=== PATIENT | female | born 1935 | race Caucasian/White ===

== ENCOUNTER → 2018-08-15 | Outpatient (CLI) | payer MEDICARE, OTHER | END | disposition home or self-care (01) | LOC: SURG 14:20 | PROVIDERS: ATTEND Anesthesiology Pain Medicine | DX: M47.26 Other spondylosis with radiculopathy, lumbar region (principal); M19.90 Unspecified osteoarthritis, unspecified site; M25.559 Pain in unspecified hip; I10 Essential (primary) hypertension; E11.9 Type 2 diabetes mellitus without complications; Z90.49 Acquired absence of other specified parts of digestive tract; Z90.710 Acquired absence of both cervix and uterus | CPT/HCPCS: 99204 ==

== ENCOUNTER → 2018-09-19 | Outpatient (CLI) | payer MEDICARE, OTHER ==
[~2018-09-19] MED LIST: 0.9 % SODIUM CHLORIDE 10 ML VIAL ONE; IOHEXOL 300 MG/ML 50 ML VIAL. ONE; LIDOCAINE 1% PF 30 ML VIAL. ONE; methylPREDNISolone ACETATE 80 MG/ML VIAL. ONE
== END | disposition home or self-care (01) ==
LOC: SURG 12:41
PROVIDERS: ATTEND Anesthesiology Pain Medicine
DX: M54.16 Radiculopathy, lumbar region (principal); Z88.6 Allergy status to analgesic agent; G47.30 Sleep apnea, unspecified; I10 Essential (primary) hypertension; K21.9 Gastro-esophageal reflux disease without esophagitis; E11.9 Type 2 diabetes mellitus without complications; M19.90 Unspecified osteoarthritis, unspecified site; Z90.710 Acquired absence of both cervix and uterus; Z90.49 Acquired absence of other specified parts of digestive tract; Z98.890 Other specified postprocedural states; Z79.899 Other long term (current) drug therapy; Z79.84 Long term (current) use of oral hypoglycemic drugs
CPT/HCPCS: 62323; J1040; J2001; Q9967

== ENCOUNTER → 2020-08-09 | Outpatient (CLI) | payer MEDICARE, OTHER | LOC: LAB 08:12 | PROVIDERS: ATTEND Internal Medicine Interventional Cardiology | DX: E78.5 Hyperlipidemia, unspecified (principal) | CPT/HCPCS: 80061 ==

== ENCOUNTER 2021-01-07 14:47 | Emergency (ER) | payer MEDICARE, OTHER | END 2021-01-07 15:20 | disposition left against medical advice (07) | LOC: ER 14:47 | DX: I10 Essential (primary) hypertension (principal); Z53.21 Procedure and treatment not carried out due to patient leaving prior to being seen by health care provider ==

== ENCOUNTER 2021-01-25 11:39 | Emergency (ER) | payer MEDICARE, OTHER ==
[~2021-01-25] VITALS: Ht 162.6 cm; Wt 77.0 kg
--- NOTE | 2021-01-25 12:22 | PHYS DOC ---
Past History Past Surgical History: Appendectomy, Cholecystectomy, Hip Replacement, Hysterectomy Additional Past Surgical Histo: Spinal fusion (MARTINE ALMARAZ APRN) Alcohol Use: None (MARTINE ALMARAZ APRN) General Adult EDM: Chief Complaint: LACERATION/AVULSION HPI: HPI: An 85-year-old female being seen in the ER for a laceration to her right forearm. Patient reports that she tripped walking out of her door and fell against the storm door and cut her arm on the metal. Patient is reporting pain to her right forearm that she rates 2 out of 10. No treatment prior to arrival. Patient denies any decreased sensation or decreased range of motion to extremity. Patient is unsure of her last tetanus shot. (MARTINE ALMARAZ APRN) Review of Systems: Review of Systems: Constitutional: Denies fever or chills Eyes: Denies change in visual acuity HENT: Denies nasal congestion or sore throat Respiratory: Denies cough or shortness of breath Cardiovascular: Denies chest pain or edema GI: Denies abdominal pain, nausea, vomiting, bloody stools or diarrhea : Denies dysuria Musculoskeletal: Denies back pain or joint pain Integument: Denies rash Neurologic: Denies headache, focal weakness or sensory changes Endocrine: Denies polyuria or polydipsia Lymphatic: Denies swollen glands Psychiatric: Denies depression or anxiety (MARTINE ALMARAZ APRN) Allergies: Allergies: Allergies Coded Allergies Type Severity Reaction Last Updated Verified Sulfa (Sulfonamide Antibiotics) Allergy Unknown 01/25/21 Yes aspirin Allergy Unknown 01/25/21 Yes ibuprofen Allergy Unknown 01/25/21 Yes (MARTINE ALMARAZ APRN) Physical Exam: PE: Constitutional: Well developed, well nourished, no acute distress, non-toxic appearance. [] HENT: Normocephalic, atraumatic, bilateral external ears normal, oropharynx moist, no oral exudates, nose normal. [] Eyes: PERRLA, EOMI, conjunctiva normal, no discharge. [] Neck: Normal range of motion, no tenderness, supple, no stridor. [] Cardiovascular:Heart rate regular rhythm, no murmur [] Lungs & Thorax: Bilateral breath sounds clear to auscultation [] Abdomen: Bowel sounds normal, soft, no tenderness, no masses, no pulsatile masses. [] Skin: Warm, dry, no erythema, no rash. [] Back: No tenderness, no CVA tenderness. [] Extremities: No tenderness, no cyanosis, no clubbing, ROM intact, no edema. [] Neurologic: Alert and oriented X 3, normal motor function, normal sensory function, no focal deficits noted. [] Psychologic: Affect normal, judgement normal, mood normal. [] (MARTINE ALMARAZ APRN) Current Patient Data: Vital Signs: Vital Signs Date Time Temp Pulse Resp B/P (MAP) Pulse Ox O2 Delivery O2 Flow Rate FiO2 01/25/21 11:46 98.1 70 18 131/71 99 (MARTINE ALMARAZ APRN) EKG: EKG: [] (MARTINE ALMARAZ APRN) Radiology/Procedures: Radiology/Procedures: PROCEDURE: FOREARM RIGHT EXAM: AP and lateral views right forearm DATE: 01/25/2021 12:49 PM INDICATION: Reason: r/o glass fb from laceration / Spl. Instructions: / History: . COMPARISON: No Prior FINDINGS/ IMPRESSION: Soft tissue laceration at the dorsal aspect of the right forearm. No definite retained radiopaque foreign body. Associated soft tissue swelling. No acute fracture or dislocation. Electronically signed by: Roshan Almeida MD (01/25/2021 1:33 PM) [id number] DICTATED AND SIGNED BY: ROSHAN ALMEIDA MD DATE: 01/25/21 1333 CC: HEMANT KEYS MD; EMERGENCY,DEPARTMENT; MARTINE ALMARAZ APRN ~MTH0 0 [] (MARTINE ALMARAZ APRN) Heart Score: C/O Chest Pain: No Risk Factors: Risk Factors: DM, Current or recent (<one month) smoker, HTN, HLP, family history of CAD, obesity. Risk Scores: Score 0 - 3: 2.5% MACE over next 6 weeks - Discharge Home Score 4 - 6: 20.3% MACE over next 6 weeks - Admit for Clinical Observation Score 7 - 10: 72.7% MACE over next 6 weeks - Early Invasive Strategies (MARTINE ALMARAZ APRN) Course & Med Decision Making: Course & Med Decision Making Pertinent Labs and Imaging studies reviewed. (See chart for details) [] Patient is an 85-year-old female being seen in the ER for a laceration to her right forearm. Wound was cleansed with chlorhexidine and saline. Laceration was explored and there were no foreign bodies or tendon involvement. X-ray performed and it was negative for any foreign body or fracture. Laceration was repaired with 5-0 ethilon, 9 sutures placed.. Patient tolerated procedure. Neuro intact pre and post procedure. Wound dressed prior to discharge. Patient advised to monitor for signs of infection including redness, warmth, swelling, drainage. I discussed with patient all findings as well as the need to follow- up with PCP for further evaluation and treatment or return to the ER if any new or worsening symptoms. Strict return precautions were also discussed at length. Patient voiced understanding and agreement with the plan. Patient is hemodynamically stable at the time of disposition. (MARTINE ALMARAZ APRN) Course & Med Decision Making I oversaw on the above date of service of this patient. This patient was evalua fabby, examined, treated, and dispositioned from the emergency department by the mid-level practitioner. Although I was working at the time , no assistance was requested. Electronically signed, Sagar Mathews DO (SAGAR MATHEWS DO) Day Disclaimer: Day Disclaimer: This electronic medical record was generated, in whole or in part, using a voice recognition dictation system. (MARTINE ALMARAZ APRN) Laceration Repair Lac Repair Time:1340 Confirmed: Patient, procedure, site, and site correct Consent: Patient has given verbal consent Laceration location:R. FA Shape:linear Depth: with subcutaneous tissue Details: Clean with no foreign material Neurovascular, tendon exam: Intact Anesthesia:1% lido Preparation: Sterile field established Irrigation: Wound irrigated with saline and chlorhexadine Debridement: Skin closure: Simple interrupted sutures placed Size of suture:5.0 ethilon Number of sutures: 9 Complexity: Single layer Post procedure exam: Circulation, motor, sensory exam intact, bleeding controlled. Complications: None Patient tolerated: Well Performed by: self Total time: 35 min (MARTINE ALMARAZ APRN) Departure Departure: Impression: Primary Impression: Laceration of arm Qualified Codes: S41.111A - Laceration without foreign body of right upper arm, initial encounter Disposition: HOME / SELF CARE / HOMELESS Condition: GOOD Referrals: HEMANT KEYS MD (PCP) Patient Instructions: Laceration Care, Adult Additional Instructions: You were seen in the ER today for a laceration to your right forearm. An x-ray was performed to check for any foreign bodies and it was negative for foreign bodies or fracture. You were given a tetanus shot in the ER. Your laceration was repaired with sutures. You will need to have the sutures out in 7 to 10 days. You can go to your primary care provider or return to the ER to have this removed. Please keep your laceration clean and dry. You can take Tylenol for pain at home. Do not submerge your arm in any water for 48 hours. Monitor for any signs of infection including redness, warmth, swelling, drainage. If you develop any signs of infection, worsening of your pain, decreased sensation to your hand, decreased range of motion, fevers please return to the ER immediately EMERGENCY DEPARTMENT GENERAL DISCHARGE INSTRUCTIONS Thank you for coming to [facility] ([facility]) today and trusting us with you care. We trust that you had a positivie experience in our Emergency Department. If you wish to speak to the department management, you may call the director at [phone]. YOUR FOLLOW UP INSTRUCTIONS ARE FOLLOWS: 1. Do you have a private Doctor? If you do not have a private doctor, please ask for a resource list of physicians or clinics that may be able to assist you with follow up care. 2. The Emergency Physician has interpreted your x-rays. The X-Ray specialist will also review them. If there is a change in the findings, you will be notified in 48 hours when at all possible. 3. A lab test or culture has been done, your results will be reviewed and you will be notified if you need a change in treatment. ADDITIONAL INSTRUCTIONS AND INFORMATION: 1. Your care today has been supervised by a physician who is specially trained in emergency care. Many problems require more than one evaluation for a complete diagnosis and treatment. We recommend that you schedule your follow up appointment as recommended to ensure complete treatment of you illness or injury. If you are unable to obtain follow up care and continue to have a problem, or if your condition worsens, we recommend that you return to the ED. 2. We are not able to safely determine your condition over the phone nor are we able to give sound medical advice over the phone. For these safety reasons, if you call for medical advice we will ask you to come to the ED for further evaluation. 3. If you have any questions regarding these discharge instructions please call the ED at [phone]. SAFETY INFORMATION: In the interest of safety, wellness, and injury prevention; we encourage you to wear your sealbelt, if you smoke; quite smoking, and we encourage family to use a protective helmet for bicycling and other sporting events that present an increased risk for head injury. IF YOUR SYMPTOMS WORSEN OR NEW SYMPTOMS DEVELOP, OR YOU HAVE CONCERNS ABOUT YOUR CONDITION; OR IF YOUR CONDITION WORSENS WHILE YOU ARE WAITING FOR YOUR FOLLOW UP APPOINTMENT; EITHER CONTACT YOUR PRIMARY CARE DOCTOR, THE PHYSICIAN WHOSE NAME AND NUMBER YOU WERE GIVEN, OR RETURN TO THE ED IMMEDIATELY. MARTINE ALMARAZ APRN Jan 25, 2021 12:22 SAGAR MATHEWS DO Jan 30, 2021 06:08
[2021-01-25] MEDS ORDERED: LIDOCAINE 1% Multi-Dose 20 ML VIAL. IJ ONE (12:30)
[2021-01-25] MEDS ORDERED: DIPH,PERTUSS(ACELL),TET VAC/PF 0.5 ML SYRINGE. VAX IM ONE (12:30)
--- NOTE | 2021-01-25 13:36 | RAD ---
EXAM: AP and lateral views right forearm DATE: 01/25/2021 12:49 PM INDICATION: Reason: r/o glass fb from laceration / Spl. Instructions: / History: . COMPARISON: No Prior FINDINGS/ IMPRESSION: Soft tissue laceration at the dorsal aspect of the right forearm. No definite retained radiopaque for eign body. Associated soft tissue swelling. No acute fracture or dislocation. Electronically signed by: Roshan Morales MD (01/25/2021 1:33 PM) [id number]
[2021-01-25 14:50] VITALS: BP 128/67
== END 2021-01-25 14:50 | disposition home or self-care (01) ==
LOC: ER 11:39
DX: S51.811A Laceration without foreign body of right forearm, initial encounter (principal); Z88.2 Allergy status to sulfonamides; Z88.6 Allergy status to analgesic agent; W01.118A Fall on same level from slipping, tripping and stumbling with subsequent striking against other sharp object, initial encounter; Y93.89 Activity, other specified; Y92.89 Other specified places as the place of occurrence of the external cause; Y99.8 Other external cause status
CPT/HCPCS: 12002; 73090; 90471; 90715; 99284

== ENCOUNTER 2021-02-01 13:03 | Emergency (ER) | payer MEDICARE, OTHER ==
[~2021-02-01] VITALS: Ht 162.6 cm; Wt 77.0 kg
--- NOTE | 2021-02-01 13:35 | PHYS DOC ---
Past History Past Surgical History: Appendectomy, Cholecystectomy, Hip Replacement, Hysterectomy Additional Past Surgical Histo: Spinal fusion (MARTINE ALMARAZ APRN) Alcohol Use: None (MARTINE ALMARAZ APRN) General Adult EDM: Chief Complaint: MECHANICAL FALL HPI: HPI: Patient is an 85-year-old female who presents to the ER for right rib pain and right hip pain following a fall. Patient reports that she was in her bathroom she lost her balance and fell against a sink on her right ribs. She rates her pain 4 out of 10. She took Tylenol prior to arrival. Patient denies hitting h er head or loss of consciousness. Patient takes Plavix. Patient denies any head or neck pain, vision changes. Patient is able to bear weight and ambulate following fall. (MARTINE ALMARAZ APRN) Review of Systems: Review of Systems: 14 body systems of the review of systems have been reviewed. See HPI for pertinent positive and negative responses, otherwise all other systems are negative, nonpertinent or noncontributory (MARTINE ALMARAZ APRN) Allergies: Allergies: Allergies Coded Allergies Type Severity Reaction Last Updated Verified Sulfa (Sulfonamide Antibiotics) Allergy Unknown 01/25/21 Yes aspirin Allergy Unknown 01/25/21 Yes ibuprofen Allergy Unknown 01/25/21 Yes (MARTINE ALMARAZ APRN) Physical Exam: PE: Constitutional: Well developed, well nourished, no acute distress, non-toxic appearance. [] HENT: Normocephalic, atraumatic, bilateral external ears normal, oropharynx moist, no oral exudates, nose normal. [] Eyes: PERRL, EOMI, conjunctiva normal, no discharge. [] Neck: Normal range of motion, no bony cervical spinal tenderness, supple, no stridor. [] Cardiovascular:Heart rate regular rhythm, no murmur [] Lungs & Thorax: Bilateral breath sounds clear to auscultation, right-sided rib pain with palpation, no flail chest, no crepitus [] Abdomen: Bowel sounds normal, soft, no tenderness, no masses, no pulsatile masses. [] Skin: Warm, dry, no erythema, no rash. [] Back: No bony spinal tenderness, good range of motion Extremities: No tenderness, no cyanosis, no clubbing, ROM intact, no edema. Right hip: Pain with palpation of right hip, no shortening or rotation, good range of motion, neuro intact to extremity. [] Neurologic: Alert and oriented X 3, normal motor function, normal sensory function, no focal deficits noted. [] Psychologic: Affect normal, judgement normal, mood normal. [] (MARTINE ALMARAZ APRN) Current Patient Data: Vital Signs: Vital Signs Date Time Temp Pulse Resp B/P (MAP) Pulse Ox O2 Delivery O2 Flow Rate FiO2 02/01/21 13:20 98.3 66 16 137/63 100 Room Air (MARTINE ALMARAZ APRN) EKG: EKG: [] (MARTINE ALMARAZ APRN) Radiology/Procedures: Radiology/Procedures: PROCEDURE: RIBS BILAT 3V XR RIBS 2 VIEWS History: Reason: fall / Spl. Instructions: / History: . Pain Technique: 3 views bilateral ribs. Comparison: None. Findings: Moderate bilateral glenohumeral DJD. No consolidation or pleural effusion. No pneumothorax. Postop changes cervical spine. Slight irregularity of the left ninth anterior rib. Impression: 1. Slight irregularity of left anterior ninth rib, may represent nondisplaced fracture. Recommend correlation with point tenderness. Electronically signed by: Marko Fitzgerald DO (02/01/2021 2:33 PM) [email or web address] DICTATED AND SIGNED BY: MARKO FITZGERALD DO DATE: 02/01/211428 CC: HEMANT KEYS MD; MARTINE ALMARAZ APRN ~MTH0 0 []PROCEDURE: HIP RIGHT 2V WITH PELVIS XR BILATERAL HIP (WITH OR WITHOUT PELVIS) 2 VIEWS_RIGHT History: Reason: fall / Spl. Instructions: / History: . Pain Technique: AP view the pelvis and 2 additional views of the right hip. Comparison: None. Findings: Left hip arthroplasty. No dislocation. No acute fracture. Lower lumbar spondylosis. Impression: 1. No acute osseous abnormalities. Electronically signed by: Marko Fitzgerald DO (02/01/2021 2:29 PM) [email or web address] DICTATED AND SIGNED BY: MARKO FITZGERALD DO DATE: 02/01/21 142 CC: HEMANT KEYS MD; MARTINE ALMARAZ APRN ~MTH0 0 (MARTINE ALMARAZ APRN) Heart Score: C/O Chest Pain: No Risk Factors: Risk Factors: DM, Current or recent (<one month) smoker, HTN, HLP, family history of CAD, obesity. Risk Scores: Score 0 - 3: 2.5% MACE over next 6 weeks - Discharge Home Score 4 - 6: 20.3% MACE over next 6 weeks - Admit for Clinical Observation Score 7 - 10: 72.7% MACE over next 6 weeks - Early Invasive Strategies (MARTINE ALMARAZ APRN) Course & Med Decision Making: Course & Med Decision Making Pertinent Labs and Imaging studies reviewed. (See chart for details) Patient is an 85-year-old female being seen in the ER for right rib and hip pain following a fall. Patient declined CT scan of head and neck. Images were performed of her ribs and right hip. Patient was noted to have a right ninth rib fracture. Patient given incentive spirometry and training. Patient reports that she has received an incentive spirometer and training before and she knows how to use it at home and has an incentive spirometer at home. Patient was seen in the ER 7 days prior for a laceration to her right forearm. She is requesting suture removal. Wound appears to be well approximated and there are no signs of infection surrounding the laceration. Sutures removed prior to the ER discharge. Patient discharged home with pain medication. Patient advised to follow-up with her primary care provider. I discussed with patient all findings and diagnostic testing as well as the need to follow-up with PCP for further evaluation and treatment or return to the ER if any new or worsening symptoms. Strict return precautions were also discussed at length. Patient voiced understanding and agreement with the plan. Patient is hemodynamically stable at the time of disposition. (MARTINE ALMARAZ APRN) Course & Med Decision Making I was the Attending physician on the above date of service of this patient. This patient was evaluated, examined, treated, and dispositioned from the emergency department by the mid-level practitioner. Although I was working at the time , no assistance was requested. Electronically signed, Sagar Mathews DO (SAGAR MATHEWS DO) Day Disclaimer: Day Disclaimer: This electronic medical record was generated, in whole or in part, using a voice recognition dictation system. (MARTINE ALMARAZ APRN) Departure Departure: Impression: Primary Impression: Rib fracture Qualified Codes: S22.31XA - Fracture of one rib, right side, initial encounter for closed fracture Additional Impression: Encounter for removal of sutures Disposition: 01 HOME / SELF CARE / HOMELESS Condition: GOOD Referrals: HEMANT KEYS MD (PCP) Patient Instructions: Rib Fracture, Suture Removal Additional Instructions: You were seen in the ER for right rib and hip pain following a fall. Your x-ray showed a right ninth rib fracture. You are being discharged home with pain medication. This medication is hydrocodone and Tylenol in combination tablet. Please do not take any additional Tylenol with this medication. This medication may cause drowsiness, do not take when you need to be alert and do not take with alcohol. Caution taking this medication as it may cause drowsiness and therefore may make you unsteady on your feet. You are also being discharged home with an incentive spirometer and training. Please use this as directed so that you do not develop pneumonia. Your sutures were removed in the ER today. Please keep this laceration clean and dry. Please follow-up with your primary care provider tomorrow regarding your ER visit. If you have frequent falls, confusion, speech difficulties, inability to walk, chest pain, shortness of breath, loss of bowel or bladder, numbness or tingling down your legs or in your pelvis, high fevers refractory to treatment please return to the ER. EMERGENCY DEPARTMENT GENERAL DISCHARGE INSTRUCTIONS Thank you for coming to [facility] ([facility]) today and trusting us with you care. We trust that you had a positivie experience in our Emergency Department. If you wish to speak to the department management, you may call the director at [phone]. YOUR FOLLOW UP INSTRUCTIONS ARE FOLLOWS: 1. Do you have a private Doctor? If you do not have a private doctor, please ask for a resource list of physicians or clinics that may be able to assist you with foll ow up care. 2. The Emergency Physician has interpreted your x-rays. The X-Ray specialist will also review them. If there is a change in the findings, you will be notified in 48 hours when at all possible. 3. A lab test or culture has been done, your results will be reviewed and you will be notified if you need a change in treatment. ADDITIONAL INSTRUCTIONS AND INFORMATION: 1. Your care today has been supervised by a physician who is specially trained in emergency care. Many problems require more than one evaluation for a complete diagnosis and treatment. We recommend that you schedule your follow up appointment as re commended to ensure complete treatment of you illness or injury. If you are unable to obtain follow up care and continue to have a problem, or if your condition worsens, we recommend that you return to the ED. 2. We are not able to safely determine your condition over the phone nor are we able to give sound medical advice over the phone. For these safety reasons, if you call for medical advice we will ask you to come to the ED for further evaluation. 3. If you have any questions regarding these discharge instructions please call the ED at [phone]. SAFETY INFORMATION: In the interest of safety, wellness, and injury prevention; we encourage you to wear your sealbelt, if you smoke; quite smoking, and we encourage family to use a protective helmet for bicycling and other sporting events that present an increased risk for head injury. IF YOUR SYMPTOMS WORSEN OR NEW SYMPTOMS DEVELOP, OR YOU HAVE CONCERNS ABOUT YOUR CONDITION; OR IF YOUR CONDITION WORSENS WHILE YOU ARE WAITING FOR YOUR FOLLOW UP APPOINTMENT; EITHER CONTACT YOUR PRIMARY CARE DOCTOR, THE PHYSICIAN WHOSE NAME AND NUMBER YOU WERE GIVEN, OR RETURN TO THE ED IMMEDIATELY. Scripts Hydrocodone Bit/Acetaminophen (HYDROCODONE-APAP 5-325 ) 1 Each Tablet 1 TAB PO PRN Q6HRS PRN for PAIN for 2 Days, #8 TAB 0 Refills Prov: MARTINE ALMARAZ APRN 02/01/21 MARTINE ALMARAZ APRN Feb 01, 2021 13:35 SAGAR MATHEWS DO Feb 03, 2021 07:07
--- NOTE | 2021-02-01 14:31 | RAD ---
XR BILATERAL HIP (WITH OR WITHOUT PELVIS) 2 VIEWS_RIGHT History: Reason: fall / Spl. Instructions: / History: . Pain Technique: AP view the pelvis and 2 additional views of the right hip. Comparison: None. Findings: Left hip arthroplasty. No dislocation. No acute fracture. Lower lumbar spondylosis. Impression: 1. No acute osseous abnormalities. Electronically signed by: Marko Fitzgerald DO (02/01/2021 2:29 PM) [facility]
--- NOTE | 2021-02-01 14:35 | RAD ---
XR RIBS 2 VIEWS History: Reason: fall / Spl. Instructions: / History: . Pain Technique: 3 views bilateral ribs. Comparison: None. Findings: Moderate bilateral glenohumeral DJD. No consolidation or pleural effusion. No pneumothorax. Postop ch anges cervical spine. Slight irregularity of the left ninth anterior rib. Impression: 1. Slight irregularity of left anterior ninth rib, may represent nondisplaced fracture. Recommend co rrelation with point tenderness. Electronically signed by: Marko Fitzgerald DO (02/01/2021 2:33 PM) [facility]
[2021-02-01] MEDS ORDERED: HYDR-2155 PO (14:51)
== END 2021-02-01 15:24 | disposition home or self-care (01) ==
LOC: ER 13:03
DX: S22.31XA Fracture of one rib, right side, initial encounter for closed fracture (principal); S51.811D Laceration without foreign body of right forearm, subsequent encounter; Z88.2 Allergy status to sulfonamides; Z88.6 Allergy status to analgesic agent; W18.09XA Striking against other object with subsequent fall, initial encounter; Y93.89 Activity, other specified; Y92.89 Other specified places as the place of occurrence of the external cause; Y99.8 Other external cause status
CPT/HCPCS: 71110; 73502; 99284

== ENCOUNTER 2021-07-28 03:33 | Observation (INO) | payer MEDICARE, OTHER ==
[~2021-07-28] VITALS: Ht 162.6 cm; Wt 78.8 kg
[~2021-07-28 03:33] MED LIST changes: -0.9 % SODIUM CHLORIDE 10 ML VIAL ONE; +HYDR-2155 PO; -IOHEXOL 300 MG/ML 50 ML VIAL. ONE; -LIDOCAINE 1% PF 30 ML VIAL. ONE; -methylPREDNISolone ACETATE 80 MG/ML VIAL. ONE
[2021-07-28] MEDS ORDERED: IV RINGERS SOLUTION,LACTATED 1,000 ML IV ONE ×2 (03:45→06:00)
[2021-07-28] MEDS ORDERED: diphenhydrAMINE 50 MG/ML VIAL IVP ONE (03:45)
[2021-07-28] MEDS ORDERED: METOCLOPRAMIDE HCL 10 MG/2 ML VIAL. IVP ONE (03:45)
--- NOTE | 2021-07-28 03:49 | PHYS DOC ---
Past History Past Surgical History: Appendectomy, Cholecystectomy, Hip Replacement, Hysterectomy Additional Past Surgical Histo: Spinal fusion Alcohol Use: None Adult General Chief Complaint Chief Complaint: NAUSEA/VOMITING/DIARRHEA HPI HPI Patient is a 85-year-old female with a past medical history of insulin-dependent diabetes who presents to the emergency department with a chief complaint of nausea, vomiting and diarrhea that started 2 days ago. States she had not seen her primary care physician. States she has not been able to take any of her medications because of nausea and vomiting but even before that she did not take her insulin may be since Sunday or Sunday but cannot say why. Endorses excessive thirst and urination. Denies any recent traumas, travels, illness, fevers, chest pain, shortness of breath, abdominal pain, dysuria, hematuria, blood in the stool. Does endorse watery diarrhea. Denies any known ill contacts. Review of Systems Review of Systems Review of systems otherwise unremarkable except noted in HPI Allergies Allergies Allergies Coded Allergies Type Severity Reaction Last Updated Verified Sulfa (Sulfonamide Antibiotics) Allergy Unknown 01/25/21 Yes aspirin Allergy Unknown 01/25/21 Yes ibuprofen Allergy Unknown 01/25/21 Yes Physical Exam Physical Exam Constitutional: Well developed, well nourished, no acute distress, non-toxic appearance. [] HENT: Normocephalic, atraumatic, bilateral external ears normal, oropharynx dry, no oral exudates, nose normal. [] Eyes: conjunctiva normal, no discharge. [] Neck: Normal range of motion, no tenderness, supple, no stridor. [] Cardiovascular:Heart rate regular rhythm, no murmur [] Lungs & Thorax: Bilateral breath sounds clear to auscultation [] Abdomen: no tenderness, no masses, no pulsatile masses. [] Skin: Warm, dry, no erythema, no rash. [] Extremities: No tenderness, no cyanosis, no clubbing, ROM intact, no edema. [] Neurologic: Alert and oriented X 3, normal motor function, normal sensory function, able to sit, stand and walk without issue no focal deficits noted. [] Psychologic: Affect normal, judgement normal, mood normal. [] EKG EKG [] Radiology/Procedures Radiology/Procedures [] Heart Score C/O Chest Pain: No Risk Factors: Risk Factors: DM, Current or recent (<one month) smoker, HTN, HLP, family history of CAD, obesity. Risk Scores: Risk Factors: DM, Current or recent (<one month) smoker, HTN, HLP, family history of CAD, obesity. Course & Med Decision Making Course & Med Decision Making Patient is an 85-year-old female, insulin-dependent diabetic had not taken her insulin for for 5 days who presents with nausea and vomiting as well as watery diarrhea Vital signs notable for tachycardia and hypertension. Physical exam noted above. Blood sugar 202. Placed on monitor with IV access established and IV fluid begun. Given antiemetics. EKG with a rate of 98, QRS of 90, QTc of 472, no STEMI. Troponin normal. Laboratory analysis notable for hypokalemia and hypomagnesemia which were replaced here in the ED. Discussed all findings with patient and recommended admission for continued evaluation and treatment. Patient stated she was feeling much better, did not want to stay in the hospital, and wanted to go home and talk to her primary care physician this morning. Discussed the risks of this including worsening symptoms including nausea, vomiting, diarrhea, abdominal pain, lightheadedness, and in the worst case scenario disability and . Patient decided to stay, and was admitted to [facility] for fluid resuscitation and nausea management. Dragon Disclaimer Dragon Disclaimer This electronic medical record was generated, in whole or in part, using a voice recognition dictation system. Departure Departure: Impression: Primary Impression: Nausea vomiting and diarrhea Disposition: ADMITTED INPATIENT Admitting Physician: Hemant Knight Condition: STABLE Referrals: HEMANT KEYS MD (PCP) Patient Instructions: Diarrhea, Nausea and Vomiting DIVINE ABRAHAM MD Jul 28, 2021 03:49
[2021-07-28 04:17] LABS: BASO % 0 % (0-3); EOS % 1 % (0-3); HEMATOCRIT 35.4 % (36.0-47.0); HEMOGLOBIN 11.5 g/dL (12.0-15.5); LYMPH # 1.3 x10^3/uL (1.0-4.8); LYMPH % 31 % (24-48); MEAN CORPUSCULAR HEMOGLOBIN 29 pg (25-35); MEAN CORPUSCULAR HGB CONC 33 g/dL (31-37); MEAN CORPUSCULAR VOLUME 88 fL (79-100); MONO # 0.5 x10^3/uL (0.0-1.1); MONO % 11 % (0-9); NEUT # 2.3 x10^3uL (1.8-7.7); NEUT % 57 % (31-73); PLATELET COUNT 158 x10^3/uL (140-400); RED BLOOD COUNT 4.01 x10^6/uL (3.50-5.40); RED CELL DISTRIBUTION WIDTH 16.9 % (11.5-14.5); WHITE BLOOD COUNT 4.1 x10^3/uL (4.0-11.0)
[2021-07-28 04:21] LABS: CALCIUM 8.8 mg/dL (8.5-10.1); CREATININE 0.8 mg/dL (0.6-1.0); GFR 68.5; POTASSIUM 3.1 mmol/L (3.5-5.1)
--- NOTE | 2021-07-28 04:23 | RAD ---
XR CHEST 1V INDICATION: Nausea, vomiting, diarrhea, diabetic, cardiac w/u COMPARISON STUDY: None. FINDINGS: Lungs: Normal lung volume. No pulmonary mass or consolidation. The tracheobronchial tree and hilar st ructures are normal. Pleura: No pleural effusion or pneumothorax. Heart and Mediastinum: The cardiomediastinal silhouette is normal. Mild tortuosity of the thoracic ao rta. IMPRESSION: No acute cardiopulmonary process. Electronically signed by: Juan Herrera MD (07/28/2021 4:21 AM) [facility]
[2021-07-28 04:26] LABS: ALBUMIN 3.5 g/dL (3.4-5.0); ALBUMIN/GLOBULIN RATIO 1.1 (1.0-1.7); MAGNESIUM 1.7 mg/dL (1.8-2.4); TOTAL BILIRUBIN 1.6 mg/dL (0.2-1.0); TOTAL PROTEIN 6.8 g/dL (6.4-8.2)
[2021-07-28 04:58] LABS: CLARITY,URINE CLEAR; COLOR,URINE YELLOW; GLUCOSE,URINE 100 mg/dL (NEG)
[2021-07-28 04:59] LABS: BACTERIA,URINE FEW /HPF (0-FEW); HYALINE CASTS, URINE FEW /HPF; NITRITE,URINE NEG (NEG); SQUAMOUS EPITHELIAL CELL,UR OCC /LPF; UROBILINOGEN,URINE 0.2 mg/dL (0.2 mg/dL)
[2021-07-28] MEDS ORDERED: MAGNESIUM OXIDE 400 MG TABLET PO ONE (05:30)
[2021-07-28] MEDS ORDERED: POTASSIUM CHLORIDE 20 MEQ TABLET.ER. PO ONE (05:30)
[2021-07-28] MEDS ORDERED: ONDANSETRON 4MG ODT 4TABLET STARTPACK. PO ONE (05:45)
[2021-07-28] MEDS ORDERED: ONDANSETRON PF 4 MG/2 ML VIAL. IVP ONE (05:45)
--- NOTE | 2021-07-28 05:51 | EKG ---
[address] [address] Test Date: 2021-07-28 Test Time: 03:53:03 Pat Name: NANCI OCHOA Department: Room: Gender: F Quality Control Representative: : [id number] Requested By: DIVINE ABRAHAM Order Number: [id number] Reading MD: José Catherine Measurements Intervals [place] Rate: 98 P: 3 SC: 152 QRS: -17 QRSD: 90 T: 38 QT: 368 QTc: 472 Interpretive Statements SINUS RHYTHM LEFTWARD AXIS PROLONGED QT Electronically Signed On 07-31-2021 14:10:16 LINK TRAINER MAINTENANCE WORKER by José Catherine
[2021-07-28] MEDS ORDERED: NORT25CA PO (06:02)
[2021-07-28] MEDS ORDERED: BUPR300T3 PO (06:02)
[2021-07-28] MEDS ORDERED: POTA-112 PO (06:02)
[2021-07-28] MEDS ORDERED: rovastatin (06:02)
[2021-07-28] MEDS ORDERED: CALC500T30 PO (06:02)
[2021-07-28] MEDS ORDERED: co q 10 (06:02)
[2021-07-28] MEDS ORDERED: [UNRECOGNIZED DRUG - OTHER] (06:02)
[2021-07-28] MEDS ORDERED: ATEN50TA PO (06:02)
[2021-07-28] MEDS ORDERED: PIOG30TA41 PO (06:02)
[2021-07-28] MEDS ORDERED: INSU100V13 SQ (06:02)
[2021-07-28] MEDS ORDERED: TELM1TAB3 PO (06:02)
[2021-07-28] MEDS ORDERED: PANT40TA3 PO (06:02)
[2021-07-28] MEDS ORDERED: AMLO5TAB4 PO (06:02)
[2021-07-28] MEDS ORDERED: EZET10TA20 PO (06:02)
[2021-07-28] MEDS ORDERED: FAMO-63 PO (06:02)
[2021-07-28] MEDS ORDERED: GABA600T7 PO ×2 (06:02)
[2021-07-28] MEDS ORDERED: CHOL10004 PO (06:02)
[2021-07-28] MEDS ORDERED: VIT1TABL34 PO (06:02)
[2021-07-28] MEDS ORDERED: ASCO500C PO (06:02)
[2021-07-28] MEDS ORDERED: [UNRECOGNIZED DRUG - OTHER] (06:02)
--- NOTE | 2021-07-28 06:37 | RAD ---
CT HEAD/BRAIN WO Date: 07/28/2021 6:15 AM Clinical Indication: Fall, altered mental status Comparison: MRI 12/20/2010. Technique: 5 mm axial tomographic images were obtained of the head without contrast. These were view ed on brain and bone windows. One or more of the following dose reduction techniques were utilized: A utomated exposure control (AEC), Adjustment of mA and/or kV according to patient size, Use of iterati ve reconstruction technique such as ASiR, CT scan done according to ALARA and image gently/image humphreys ly Findings: Mild generalized cerebral and cerebellar volume loss. Mild nonspecific periventricular hypoattenuatio n, most commonly seen with chronic small vessel ischemic disease. Calcified atherosclerosis of the bi lateral cavernous and paraclinoid internal carotid arteries and intracranial vertebral arteries. Righ t basal ganglia chronic lacunar infarcts. No intra- or extra-axial mass or fluid collection. No acute hemorrhage. The ventricles are normal in size, shape, and morphology. The pastrana-white matter junction is normal. The subarachnoid cisterns are patent. The visualized paranasal sinuses are normal. The visualized portions of the orbits and globes are no rmal. The mastoid air cells are clear. The application penetration tester topogram shows no lytic lesion or fracture. Impression: 1. No acute hemorrhage or large territory pastrana-white loss. 2. Mild cerebral volume loss. Mild chronic small vessel ischemic disease. Electronically signed by: Juan Herrera MD (07/28/2021 6:35 AM) [facility] [place]
[2021-07-28 08:49] VITALS: BP 166/83
[2021-07-28] MEDS ORDERED: hydroCHLOROthiazide 12.5 MG CAPSULE PO SCH (09:30)
[2021-07-28] MEDS ORDERED: LOSARTAN 50 MG TABLET. PO SCH (09:30)
--- NOTE | 2021-07-28 10:01 | HP ---
DATE OF SERVICE: 07/28/2021 ADMIT DATE: 07/28/2021 ATTENDING PHYSICIAN: Dr. Knight. CHIEF COMPLAINT: Nausea, vomiting, weakness. HISTORY OF PRESENT ILLNESS: The patient is an 85-year-old female who presented to ED with nausea, vomiting, and diarrhea for 2 days. She has a negative workup. Blood work was unremarkable. Sugars are not particularly high. She does have a history of diabetic gastroparesis. She feels weak. She is a little bit forgetful. She does have watery diarrhea. No known ill contacts. She has been vaccinated against COVID. Her viral study was negative. The patient was admitted then with dehydration and poorly controlled diabetes mellitus. PAST MEDICAL HISTORY: Significant for diabetes, hypertension, anxiety. PAST SURGICAL HISTORY: Includes appendectomy, cholecystectomy, hip replacement, hysterectomy and spinal fusion. ALLERGIES: SHE HAS ALLERGIES TO SULFA, ASPIRIN AND IBUPROFEN, EXACT REACTIONS UNCLEAR. CURRENT MEDICATIONS: Reviewed. She was on scheduled amlodipine, ascorbic acid, atenolol, BuSpar, calcium, Zetia, famotidine, Neurontin, insulin, nortriptyline, Protonix, Actos, potassium, Micardis, vitamin D, and coenzyme Q10. SOCIAL HISTORY: She is nonsmoker, nondrinker. FAMILY HISTORY: Three brothers of malignancy. Father at age 72 of lung cancer. Mother of a blood clot at age 68. REVIEW OF SYSTEMS: She is tired all the time. She has diabetes. She has a history of gastroparesis. No COVID exposure. All other systems reviewed and turned to be negative. PHYSICAL EXAMINATION: GENERAL: When I saw her, this is a pleasant elderly female. VITAL SIGNS: Her initial vital signs showed a blood pressure of 166/83, pulse is 90 and regular. She is afebrile. Oxygen saturation 97% on room air. HEENT: Head is without trauma. Pupils are reactive. Sclerae nonicteric. Oropharynx clear. NECK: Supple, no bruits. LUNGS: Clear. CARDIOVASCULAR: Regular heart tones. ABDOMEN: Soft. No guarding. Normoactive bowel sounds. EXTREMITIES: Show no signs of edema. NEUROLOGIC: Focally intact. Speech is fluent. SKIN: Warm and dry. LABORATORY DATA: Hemoglobin 11.5 grams, white count 4100. Electrolytes: Creatinine is 0.8 mg%, potassium 3.1 mEq. Urinalysis was clear. Serology negative for the rapid COVID screen. CT of the head and chest showed no acute process. ASSESSMENT: 1. An 85-year-old female with self-limiting gastroenteritis. 2. Mild dehydration clinically. 3. Gastroparesis. 4. Type 2 diabetes. 5. 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 PLAN: 1. Admit to the inpatient unit. 2. Gentle IV hydration. 3. Medication simplified. 4. Diet as tolerated. CRISTIAN DR: Marion TID: [id number] CC: HEMANT KEYS
[2021-07-28] MEDS: IV NORMAL SALINE 1,000ML 1,000 ML IV SCH ×2 (10:22→20:36)
[2021-07-28] MEDS: ATENOLOL 50 MG TABLET PO SCH ×2 (10:22→20:35)
[2021-07-28] MEDS: EZETIMIBE 10 MG TABLET PO SCH (10:22)
[2021-07-28] MEDS: CALCIUM CARBONATE 500 MG TABLET PO SCH (10:22)
[2021-07-28] MEDS: PANTOPRAZOLE 40 MG TABLET. PO SCH (10:23)
[2021-07-28] MEDS: buPROPion XL 300 MG TAB.ER.24H. PO SCH (10:23)
[2021-07-28] MEDS: POTASSIUM CHLORIDE 10 MEQ TABLET.ER. PO SCH (10:23)
[2021-07-28] MEDS: FAMOTIDINE 20 MG TABLET PO SCH ×2 (10:24→20:35)
[2021-07-28 15:25] VITALS: BP 173/78
[2021-07-28 20:17] VITALS: BP 169/70
[2021-07-28] MEDS: INSULIN GLARGINE SYRINGE. SQ SCH (20:56)
[2021-07-28] MEDS ORDERED: NORTRIPTYLINE 25 MG CAPSULE PO SCH (21:00)
[2021-07-28 23:58] VITALS: BP 157/76
[2021-07-29 05:55] VITALS: BP 161/77
[2021-07-29] MEDS: POTASSIUM CHLORIDE 10 MEQ TABLET.ER. PO SCH (07:55)
[2021-07-29] MEDS: PANTOPRAZOLE 40 MG TABLET. PO SCH (07:55)
[2021-07-29] MEDS: FAMOTIDINE 20 MG TABLET PO SCH (07:55)
[2021-07-29] MEDS: CALCIUM CARBONATE 500 MG TABLET PO SCH (07:55)
[2021-07-29] MEDS: ATENOLOL 50 MG TABLET PO SCH (07:55)
[2021-07-29 07:56] VITALS: BP 161/77
[2021-07-29] MEDS: buPROPion XL 300 MG TAB.ER.24H. PO SCH (07:56)
[2021-07-29] MEDS: EZETIMIBE 10 MG TABLET PO SCH (07:56)
[2021-07-29] MEDS ORDERED: PIOGLITAZONE 15 MG TABLET. PO SCH (09:00)
[2021-07-29] MEDS ORDERED: amLODIPine BESYLATE 5 MG TABLET PO SCH (09:00)
[2021-07-29] MEDS ORDERED: MULTIVITAMIN I-VITE TABLET. PO SCH (09:00)
[2021-07-29] MEDS: INSULIN GLARGINE SYRINGE. SQ SCH (09:17)
--- NOTE | 2021-07-29 12:45 | DS ---
DATE OF DISCHARGE: 07/29/2021 ATTENDING PHYSICIAN: Hemant Knight MD FINAL DISCHARGE DIAGNOSES: 1. Self-limiting gastroenteritis, resolved. 2. Mild dehydration, rehydrated. 3. Type 2 diabetes mellitus. 4. Diabetic gastroparesis. 5. Underlying dementia. HISTORY AND PHYSICAL: The patient is a very pleasant 85-year-old female. She lives with her son. She comes in with nausea, vomiting, weakness, and some confusion. PHYSICAL EXAMINATION: Please see my dictated note. PERTINENT LABORATORY STUDIES: On admission, her hemoglobin was 11.5 grams/dL with a white count of 4100. Chemistry panel was unremarkable. Her sodium was 136, potassium 3.1 mEq replaced, which will be followed as an outpatient. Nonfasting blood sugar 194. Serology was negative for coronavirus and influenza. The obligatory CT of the head showed mild cerebral volume loss, no acute strokes or bleeds identified. She also had imaging studies of her chest and abdomen without any acute inflammatory process or obstruction identified. COURSE IN THE HOSPITAL: The patient was admitted. She was started on gentle IV hydration, clear liquids and gradually advanced. We held her Pamelor, we continued her other home meds. We monitored her blood sugars, she did well. By the next day, she was feeling better. Her vital signs were quite stable. She was afebrile and she was quite alert. Therefore, she was discharged home. I had a chance to discuss the case with her primary caretakers, namely her granddaughter and son. Therefore, she is discharged home with no change in her meds. I took the liberty of holding her Pamelor for now, I do not think this is necessary. She should continue her insulin regimen as scheduled, Actos, Micardis, as well as her scheduled vitamin C, BuSpar, calcium, Zetia, Pepcid, Neurontin, Protonix, potassium, vitamin A, vitamin D, and coenzyme Q, doses unchanged. She will follow up with her primary care physician, Dr. Hall, as scheduled. The patient was then discharged from our hospital in stable condition with explicit drug and followup care. IBAN/ANNITA/SHANE DR: Marion TID: [id number] CC: HEMANT HALL
== END 2021-07-29 10:45 | disposition home or self-care (01) ==
LOC: ER 03:33 → 1 SOUTH 05:53 → INTOOBSV 05:53 → 1 SOUTH 07:41
PROVIDERS: ADMIT Hospitalist; ATTEND Hospitalist
DX: K52.9 Noninfective gastroenteritis and colitis, unspecified (principal); Z20.822 Contact with and (suspected) exposure to COVID-19; E86.0 Dehydration; E11.65 Type 2 diabetes mellitus with hyperglycemia; E11.43 Type 2 diabetes mellitus with diabetic autonomic (poly)neuropathy; I10 Essential (primary) hypertension; K31.84 Gastroparesis; F03.90 Unspecified dementia, unspecified severity, without behavioral disturbance, psychotic disturbance, mood disturbance, and anxiety; F41.8 Other specified anxiety disorders; Z79.4 Long term (current) use of insulin; Z90.49 Acquired absence of other specified parts of digestive tract; Z90.710 Acquired absence of both cervix and uterus; Z96.649 Presence of unspecified artificial hip joint; Z98.1 Arthrodesis status; Z79.899 Other long term (current) drug therapy; Z98.890 Other specified postprocedural states
CPT/HCPCS: 36415; 70450; 71045; 80053; 81001; 82803; 82947; 83690; 83735; 84484; 85025; 87426; 93005; 96361; 96374; 96375; 99285; G0378; J1200; J1815; J2405; J2765; J7030; J7120; U0003; G0379